=== PATIENT | female | born 1955 | race Caucasian/White ===

== ENCOUNTER → 2019-09-16 | Outpatient (CLI) | payer MEDICARE ==
[~2019-09-16] MED LIST: LIDOCAINE 1%, 20ML ONE; LIDOCAINE 1%-EPI 1:100K, 20ML ONE; SODIUM BICARBONATE 4.2%, 5ML ONE
== END | disposition home or self-care (01) ==
LOC: CFH 12:03
PROVIDERS: ATTEND Family Medicine
DX: N63.25 Unspecified lump in the left breast, overlapping quadrants (principal); C50.812 Malignant neoplasm of overlapping sites of left female breast; Z17.0 Estrogen receptor positive status [ER+]
CPT/HCPCS: 19083; 77065; 88305; 88360; J3490; 19285

== ENCOUNTER 2019-10-08 07:35 | Outpatient (CLI) | payer MEDICARE ==
[2019-10-08] MEDS ORDERED: GADOTERATE 7.5 MMOL/15 ML VIAL ONE (09:23)
== END 2019-10-08 23:59 | disposition home or self-care (01) ==
LOC: CFH 07:35
PROVIDERS: ATTEND Surgery
DX: C50.512 Malignant neoplasm of lower-outer quadrant of left female breast (principal)
CPT/HCPCS: 77049; A9575; C8908; C8937

== ENCOUNTER 2019-10-18 09:01 | Day surgery (SDC) | payer MEDICARE ==
[~2019-10-18] VITALS: Ht 154.9 cm; Wt 63.9 kg
[~2019-10-18 09:01] MED LIST changes: +BUPIVACAINE/PF-EPI 0.5% 1:200K ONE; +ISOSULFAN BLUE 10 MG/ML, 5ML IV ONE; -LIDOCAINE 1%, 20ML ONE; -LIDOCAINE 1%-EPI 1:100K, 20ML ONE; -SODIUM BICARBONATE 4.2%, 5ML ONE
[2019-10-18 09:48] VITALS: BP 152/79
[2019-10-18] MEDS ORDERED: CHLORHEXIDINE 15 ML UDC ONE (09:57)
[2019-10-18] MEDS ORDERED: CHLORHEXIDINE 15 ML UDC MM ONE (10:00)
[2019-10-18] MEDS ORDERED: ROSU5TAB PO (10:09)
[2019-10-18] MEDS ORDERED: MIDAZOLAM 1 MG/ML, 2ML ONE (10:14)
[2019-10-18] MEDS ORDERED: FENTANYL PF 250 MCG/5ML ONE (10:14)
[2019-10-18] MEDS ORDERED: PROPOFOL 50 ML ONE (10:14)
[2019-10-18] MEDS ORDERED: HEPARIN 1,000 UNITS/ML, 10ML ONE (10:37)
[2019-10-18] MEDS ORDERED: CEFAZOLIN 1,000 MG ONE (10:43)
[2019-10-18] MEDS ORDERED: ONDANSETRON 2MG/ML, 2ML ONE (10:56)
[2019-10-18] MEDS ORDERED: DEXAMETHASONE 4 MG/ML, 1ML ONE (10:56)
[2019-10-18] MEDS ORDERED: ACETAMINOPHEN 325 MG TABLET PO PRN (11:00)
[2019-10-18] MEDS ORDERED: LACTATED RINGERS 1,000 ML IV SCH (11:00)
[2019-10-18] MEDS ORDERED: FENTANYL PF 100 MCG/2ML IV PRN (11:00)
[2019-10-18] MEDS ORDERED: MIDAZOLAM 1 MG/ML, 2ML IV PRN (11:00)
[2019-10-18] MEDS ORDERED: morphine SULFATE 10 MG/ML, 1ML IVPush PRN (11:00)
[2019-10-18] MEDS ORDERED: DIPHENHYDRAMINE 50 MG/ML, 1ML IVPush PRN (11:00)
[2019-10-18] MEDS ORDERED: EPHEDRINE 50 MG/ML, 1ML IM PRN (11:00)
[2019-10-18] MEDS ORDERED: MEPERIDINE/PF 25MG/0.5ML IVPush PRN (11:00)
[2019-10-18] MEDS ORDERED: OXYcodone 5 MG/5 ML ORAL.SOL UDC PO PRN (11:00)
[2019-10-18] MEDS ORDERED: PROMETHAZINE 25 MG/ML, 1ML IVPush PRN (11:00)
[2019-10-18] MEDS ORDERED: ONDANSETRON 2MG/ML, 2ML IVPush PRN (11:00)
[2019-10-18] MEDS ORDERED: DIAZEPAM 5 MG/ML, 2ML IVPush PRN (11:00)
[2019-10-18] MEDS ORDERED: LABETALOL 5MG/ML, 20ML IV PRN (11:00)
[2019-10-18] MEDS ORDERED: EPHEDRINE 50 MG/ML, 1ML IVPush PRN (11:00)
[2019-10-18] MEDS ORDERED: OXYcodone 5 MG/5 ML ORAL.SOL UDC ONE (11:54)
== END 2019-10-18 13:55 | disposition home or self-care (01) ==
LOC: OUT 09:01
PROVIDERS: ATTEND Surgery
DX: C50.512 Malignant neoplasm of lower-outer quadrant of left female breast (principal); Z11.59 Encounter for screening for other viral diseases; E78.00 Pure hypercholesterolemia, unspecified; F17.210 Nicotine dependence, cigarettes, uncomplicated; Z17.0 Estrogen receptor positive status [ER+]; Z90.710 Acquired absence of both cervix and uterus; Z98.890 Other specified postprocedural states; Z80.3 Family history of malignant neoplasm of breast; Z83.3 Family history of diabetes mellitus; Z82.49 Family history of ischemic heart disease and other diseases of the circulatory system; Z80.41 Family history of malignant neoplasm of ovary; Z80.0 Family history of malignant neoplasm of digestive organs
CPT/HCPCS: 19125; 36561; 38525; 38792; 77001; 88307; 93005; A9541; C1788; J0690; J1100; J1644; J2250; J2405; J2704; J3010; J7120; U0001; 76000

== ENCOUNTER 2019-11-11 07:13 | Outpatient (CLI) | payer MEDICARE ==
[~2019-11-11 07:13] MED LIST changes: -BUPIVACAINE/PF-EPI 0.5% 1:200K ONE; -ISOSULFAN BLUE 10 MG/ML, 5ML IV ONE; +ROSU5TAB PO
== END 2019-11-11 23:59 | disposition home or self-care (01) ==
LOC: ROC 07:13
PROVIDERS: ATTEND Radiology Radiation Oncology
DX: C50.512 Malignant neoplasm of lower-outer quadrant of left female breast (principal)
CPT/HCPCS: 99214; G0463

== ENCOUNTER → 2019-11-16 | Outpatient (CLI) | payer MEDICARE | END | disposition home or self-care (01) | LOC: CFH 08:15 | PROVIDERS: ATTEND Internal Medicine Hematology & Oncology | DX: C50.412 Malignant neoplasm of upper-outer quadrant of left female breast (principal); I08.1 Rheumatic disorders of both mitral and tricuspid valves | CPT/HCPCS: 93306 ==

== ENCOUNTER → 2020-03-01 | Outpatient (CLI) | payer MEDICARE | END | disposition home or self-care (01) | LOC: CFH 14:52 | PROVIDERS: ATTEND Internal Medicine Hematology & Oncology | DX: C50.412 Malignant neoplasm of upper-outer quadrant of left female breast (principal); I08.1 Rheumatic disorders of both mitral and tricuspid valves | CPT/HCPCS: 93308 ==

== ENCOUNTER → 2020-05-11 | Outpatient (CLI) | payer MEDICARE | END | disposition home or self-care (01) | LOC: CVU 07:28 | PROVIDERS: ATTEND Internal Medicine Hematology & Oncology | DX: C50.412 Malignant neoplasm of upper-outer quadrant of left female breast (principal); I08.0 Rheumatic disorders of both mitral and aortic valves; E78.00 Pure hypercholesterolemia, unspecified; F17.200 Nicotine dependence, unspecified, uncomplicated | CPT/HCPCS: 93308; 93321; 93325; 93356 ==

== ENCOUNTER → 2020-05-30 | Outpatient (CLI) | payer MEDICARE | END | disposition home or self-care (01) | LOC: CFH 08:07 | PROVIDERS: ATTEND Surgery | DX: C50.512 Malignant neoplasm of lower-outer quadrant of left female breast (principal); N60.02 Solitary cyst of left breast | CPT/HCPCS: 76642; 77062; 77066; G0279 ==

== ENCOUNTER 2020-07-06 07:33 | Outpatient (CLI) | payer MEDICARE | END 2020-07-06 23:59 | disposition home or self-care (01) | LOC: ROC 07:33 | PROVIDERS: ATTEND Radiology Radiation Oncology | DX: Z08 Encounter for follow-up examination after completed treatment for malignant neoplasm (principal); Z85.3 Personal history of malignant neoplasm of breast | CPT/HCPCS: 99212; G0463 ==

== ENCOUNTER → 2020-08-10 | Outpatient (CLI) | payer MEDICARE | END | disposition home or self-care (01) | LOC: CVU 10:45 | PROVIDERS: ATTEND Internal Medicine Hematology & Oncology | DX: C50.412 Malignant neoplasm of upper-outer quadrant of left female breast (principal); I08.1 Rheumatic disorders of both mitral and tricuspid valves | CPT/HCPCS: 93306; 93356 ==